=== PATIENT | male | born 1960 | race Caucasian/White ===

== ENCOUNTER 2018-12-09 19:45 | Emergency (ER) | payer OTHER ==
[2018-12-09] MEDS ORDERED: DIPHTH,PERTUSS(ACELL),TET 0.5 ML DISP.SYRIN IM ONE ×2 (19:57→21:50)
--- NOTE | 2018-12-09 20:00 | PDOC ---
Rapid Medical Evaluation Chief Complaint: Puncture Wound Time Seen by Provider: 12/09/18 19:54 Medical Evaluation: Allergies Allergy/AdvReac Type Severity Reaction Status Date / Time No Known Allergies Allergy Verified 12/09/18 19:56 12/09/18 19:58 Pt c/o: stuck with nail to rt hand and left foot while putting in an AC unit. Hx diabetes. last BGM 1 week ago 120. unknown last tetanus inj Pt on brief exam: noted small superficial puncture to web of rt thumb, left foot no visible puncture or mar noted Pt ordered for: tdap Pt to proceed to the ED Discharge Disposition - Diagnosis Wound from metal nail - Referrals - Patient Instructions - Post Discharge Activity
[2018-12-09 20:01] VITALS: BP 124/82; PULSE 99; TEMP 98; BMI 25.7
--- NOTE | 2018-12-09 22:35 | PDOC ---
History of Present Illness - General Chief Complaint: Puncture Wound Stated Complaint: FINGER PROBLEM Time Seen by Provider: 12/09/18 19:54 History Source: Patient Exam Limitations: No Limitations - History of Present Illness Initial Comments: 12/09/18 22:40 HISTORY OF PRESENT ILLNESS: 58-year-old male past medical history of diabetes and hypertension who presents emergency department for evaluation of right hand puncture wound and splinter to his right great toe while moving air- conditioner. Patient stated is walking barefoot in his basement when he stepped on a broken 2 x 4. Patient reported he felt a sharp pain to the bottom of his left great toe. Patient reports while placing his unit into the window he caught his right hand on a nail. Patient is unsure of last tetanus shot. No recent travel or sick contacts. PAST MEDICAL HISTORY: see HPI SURGICAL HISTORY: Denies ALLERGIES: No known drug allergies REVIEW OF SYSTEMS General/Constitutional: Denies fever or chills. Denies weakness, weight change. HEENT: Denies change in vision. Denies ear pain or discharge. Denies sore throat. Cardiovascular: Denies chest pain or shortness of breath. Respiratory: Denies cough, wheezing, or hemoptysis. Gastrointestinal: Denies nausea, vomiting, diarrhea or constipation. Denies rectal bleeding. Genitourinary: Denies dysuria, frequency, or change in urination. Musculoskeletal: see HPI Skin and breasts: Denies rash or easy bruising. Neurologic: Denies headache, vertigo, loss of consciousness, or loss of sensation. Psychiatric: Denies depression or anxiety. Endocrine: Denies increased thirst. Denies abnormal weight change. Hematologic/Lymphatic: Denies anemia, easy bleeding, or history of blood clots. Allergic/Immunologic: Denies hives or skin allergy. Denies latex allergy. PHYSICAL EXAM General Appearance: Well-appearing, appropriately dressed. No apparent distress , no intoxication. HEENT: EOMI, PERRLA, normal ENT inspection, normal voice, TMs normal, pharynx normal. No conjunctival pallor. No photophobia, scleral icterus. Neck: Supple. Trachea midline. No tenderness, rigidity, carotid bruit, stridor , lymphadenopathy, or thyromegaly. Respiratory/Chest: Lungs CTAB. No shortness of breath, chest tenderness, respiratory distress, accessory muscle use. No crackles, rales, rhonchi, stridor , wheezing, dullness Cardiovascular: RRR. S1, S2. No JVD, murmur, bradycardia, tachycardia. Vascular Pulses: Dorsalis-Pedis (R): 2+, Dorsalis-Pedis (L): 2+ Gastrointestinal/Abdominal: Normal bowel sounds. Abdomen soft, non-distended. No tenderness or rebound tenderness. No organomegaly, pulsatile mass, guarding, hernia, hepatomegaly, splenomegaly. Lymphatic: No adenopathy, tenderness. Musculoskeletal/Extremities: Punctate wound present to the dorsal thenar space of the right hand. No signs of infection present. Full active range of motion of all digits of the right hand. Neurovascular intact. Bleeding is well controlled. Retained splinter noted to the plantar surface of the left great toe at the MTP. No signs of infection present around this wound. Integumentary: Appropriate color, dry, warm. No cyanosis, erythema, jaundice or rash Neurologic: viticulturist II-XII intact. Fully oriented, alert. Appropriate mood/affect. Motor strength 5/5. No appreciable EOM palsy, facial droop or sensory deficit. 12/09/18 22:42 Past History - Past Medical History Allergies/Adverse Reactions: Allergies Allergy/AdvReac Type Severity Reaction Status Date / Time No Known Allergies Allergy Verified 12/09/18 19:56 Home Medications: Ambulatory Orders Metformin HCl [Metformin HCl ER] 500 mg PO ASDIR 12/09/18 NK [No Known Home Medication] 12/09/18 Cardiac Disorders: No CVA: No COPD: No Diabetes: Yes (NIddm) - Suicide/Smoking/Psychosocial Hx Smoking History: Never smoked Hx Alcohol Use: No Drug/Substance Use Hx: No *Physical Exam - Vital Signs Last Vital Signs Temp Pulse Resp BP Pulse Ox 98 F 99 H 20 124/82 100 12/09/18 19:56 12/09/18 19:56 12/09/18 19:56 12/09/18 19:56 12/09/18 19:56 ED Treatment Course - Medications Given in the ED: ED Medications Discontinued Medications Generic Name Dose Route Start Last Admin Trade Name Freq PRN Reason Stop Dose Admin Diphtheria/Tetanus/Acell Pertussis 0.5 ml 12/09/18 19:57 12/09/18 22:09 Boostrix - IM 12/09/18 19:58 0.5 ml .ONCE ONE Administration Medical Decision Making - Medical Decision Making 12/09/18 22:37 A/P: 58-year-old male with splinter to the plantar surface of the left great toe Puncture wound present to the thenar space of the right hand. Full flexion and extension of all digits of the right hand No erythema, discharge or drainage present from the puncture wound. 1 foreign body present to the plantar surface of the left great toe. No discharge or drainage or erythema present to splinter wound Wooden foreign body removed using forceps without incident. Boostrix Discharge home 12/09/18 22:44 *DC/Admit/Observation/Transfer Diagnosis at time of Disposition: Wound from metal nail, Splinter in skin - Discharge Dispostion Disposition: HOME Condition at time of disposition: Stable Decision to Admit order: No - Referrals Referrals: Paloma Nguyen [Primary Care Provider] - - Patient Instructions Additional Instructions: Your tetanus has been updated today. Return to emergency department for any redness or swelling around the wound, red streaks going up your arm, discharge or drainage from the wound, or for any other concerns. Thank you very much for choosing us to provide your emergent health care needs. - Post Discharge Activity
== END 2018-12-09 22:56 | disposition home or self-care (01) ==
LOC: JERFT 19:45
PROC: 3E0234Z Introduction of Serum, Toxoid and Vaccine into Muscle, Percutaneous Approach (ICD-10-PCS; principal; 2018-12-09)
PROC: 0HCNXZZ Extirpation of Matter from Left Foot Skin, External Approach (ICD-10-PCS; 2018-12-09)
DX: S61.431A Puncture wound without foreign body of right hand, initial encounter (principal); W45.0XXA Nail entering through skin, initial encounter; Y93.E9 Activity, other interior property and clothing maintenance; Y92.038 Other place in apartment as the place of occurrence of the external cause; S90.452A Superficial foreign body, left great toe, initial encounter; W45.8XXA Other foreign body or object entering through skin, initial encounter; Y93.89 Activity, other specified; Y99.8 Other external cause status
CPT/HCPCS: 10120-25; 90471; 90715; 99281-25